=== PATIENT | female | born 1990 | race Two or more races ===

== ENCOUNTER 2024-09-25 14:30 | Outpatient (CLI) | payer OTHER | END 2024-09-25 14:33 | disposition home or self-care (01) | LOC: SONOGRAMA 14:30 | PROVIDERS: ATTEND Pathology Anatomic Pathology & Clinical Pathology | DX: E04.1 Nontoxic single thyroid nodule (principal) ==

== ENCOUNTER → 2025-09-18 | Outpatient (CLI) | payer OTHER | END | disposition home or self-care (01) | LOC: NST 14:11 | PROVIDERS: ATTEND Obstetrics & Gynecology | DX: Z34.83 Encounter for supervision of other normal pregnancy, third trimester (principal) ==

== ENCOUNTER 2025-09-29 14:30 | Inpatient (IN) | payer OTHER ==
[~2025-09-29] VITALS: Ht 167.6 cm; Wt 94.3 kg
[2025-10-02] MEDS ORDERED: PRENATABS RX T1 EACH PO (22:45)
[2025-10-02] MEDS ORDERED: SYNTHROID100 MCG PO (22:46)
[2025-10-02] MEDS ORDERED: D3 PLUS K2 DOT1 EACH PO (22:46)
[2025-10-02] MEDS ORDERED: IRON236 MG PO (22:46)
[2025-10-02] MEDS ORDERED: ESCITALOPRA5 MG/5 ML PO (22:47)
[2025-10-06 15:00] VITALS: BP 118/71
[2025-10-06 16:05] LABS: BASO % 0.5 % (0.1-1.2); EOS # 0.20 (0.04-0.54); EOS % 2.4 % (0.7-7.0); LYMPH # 1.72 (1.18-3.74); LYMPH % 21.1 % (19.3-53.1); MEAN PLATELET VOLUME 12.30 fl (9.4-12.4); MONO # 0.61 (0.24-0.82); MONO % 7.5 % (4.7-12.5); NEUT # 5.58 (1.56-6.13); NEUT % 68.3 % (34.0-71.1); RED CELL DISTRIBUTION WIDTH 12.7 % (11.6-14.4)
[2025-10-06] MEDS ORDERED: LEXAPRO5 MG PO (16:10)
[2025-10-06] MEDS ORDERED: PEPCID AC20 MG PO (16:11)
[2025-10-06] MEDS ORDERED: MISOPROSTOL 25 MCG TABLET VAG ONE (16:15)
[2025-10-06] MEDS ORDERED: RINGERS SOLUTION,LACTATED 1,000 ML IV SCH (16:15)
[2025-10-06 16:33] LABS: INR 0.95
[2025-10-06 17:05] LABS: ALT/SGPT 17.0 U/L (12-78); AST/SGOT 20.0 U/L (15-37); BILIRUBIN TOTAL 0.25 mg/dL (0.3-1.2); BUN CREA RATIO 21.0 (7.0-25.0); CREATININE SERUM 0.67 mg/dL (0.55-1.02); GFR 101.36; GLOBULINA 3.7 G/DL (2.4-3.5); GLUCOSE FASTING 91.0 mg/dL (65-100); OSMOLALITY SERUM 276.0 MOSM/KG (275-295)
[2025-10-06] MEDS ORDERED: MORPHINE SULFATE 4 MG/ML VIAL IV PRN (17:15)
[2025-10-06 19:47] VITALS: BP 134/83
[2025-10-06 23:43] VITALS: BP 118/75
[2025-10-07] VITALS (7 sets, daily range): BP systolic 112–141; BP diastolic 68–86
[2025-10-07] MEDS ORDERED: LEVOTHYROXINE SODIUM 100 MCG TABLET PO SCH (06:00)
[2025-10-07] MEDS ORDERED: OXYTOCIN 500 ML IV ONE (06:30)
[2025-10-07] MEDS ORDERED: CHLORHEXIDINE GLUCONATE 120 ML BOTTLE TOP SCH (10:00)
[2025-10-07] MEDS ORDERED: OXYTOCIN 1,000 ML IV SCH (10:00)
[2025-10-08] VITALS: BP 101/70
[2025-10-08 08:00] VITALS: BP 115/73
[2025-10-08 08:03] LABS: BASO % 0.3 % (0.1-1.2); EOS # 0.13 (0.04-0.54); EOS % 1.0 % (0.7-7.0); LYMPH # 2.41 (1.18-3.74); LYMPH % 18.9 % (19.3-53.1); MEAN PLATELET VOLUME 11.70 fl (9.4-12.4); MONO # 0.76 (0.24-0.82); MONO % 5.9 % (4.7-12.5); NEUT # 9.37 (1.56-6.13); NEUT % 73.4 % (34.0-71.1); RED CELL DISTRIBUTION WIDTH 12.9 % (11.6-14.4)
[2025-10-08] MEDS ORDERED: SOD FERRIC GLUC COMPLX/SUCROSE 62.5 MG/5 ML AMPUL IV SCH (09:14)
[2025-10-08] MEDS ORDERED: FERROUS SULFATE 325 MG TABLET.EC PO SCH (09:14)
[2025-10-08] MEDS ORDERED: CITRIC ACID/SODIUM CITRATE 30 ML BLIST.PACK PO SCH (09:18)
[2025-10-08 16:30] VITALS: BP 112/71
[2025-10-08 16:41] LABS: BASO % 0.3 % (0.1-1.2); EOS # 0.16 (0.04-0.54); EOS % 1.1 % (0.7-7.0); LYMPH # 2.76 (1.18-3.74); LYMPH % 18.4 % (19.3-53.1); MEAN PLATELET VOLUME 11.40 fl (9.4-12.4); MONO # 0.89 (0.24-0.82); MONO % 5.9 % (4.7-12.5); NEUT # 11.05 (1.56-6.13); NEUT % 73.7 % (34.0-71.1); RED CELL DISTRIBUTION WIDTH 13.1 % (11.6-14.4)
[2025-10-08 23:05] VITALS: BP 114/77
[2025-10-09 04:11] LABS: BASO % 0.4 % (0.1-1.2); EOS # 0.24 (0.04-0.54); EOS % 1.5 % (0.7-7.0); LYMPH # 3.09 (1.18-3.74); LYMPH % 19.2 % (19.3-53.1); MEAN PLATELET VOLUME 12.00 fl (9.4-12.4); MONO # 1.07 (0.24-0.82); MONO % 6.7 % (4.7-12.5); NEUT # 11.34 (1.56-6.13); NEUT % 70.5 % (34.0-71.1)
[2025-10-09 04:12] LABS: RED CELL DISTRIBUTION WIDTH 16.3 % (11.6-14.4)
[2025-10-09 08:47] VITALS: BP 124/88
== END 2025-10-09 15:55 | disposition home or self-care (01) | DRG 807 ==
LOC: LDR 10-06 14:35 → OB/GYN 10-07 10:28
PROVIDERS: Obstetrics & Gynecology; ADMIT Obstetrics & Gynecology; ATTEND Obstetrics & Gynecology
PROC: 3E033VJ Introduction of Other Hormone into Peripheral Vein, Percutaneous Approach (ICD-10-PCS; 2025-10-06)
PROC: 3E0P7VZ Introduction of Hormone into Female Reproductive, Via Natural or Artificial Opening (ICD-10-PCS; 2025-10-06)
PROC: 4A1HXCZ Monitoring of Products of Conception, Cardiac Rate, External Approach (ICD-10-PCS; 2025-10-06)
PROC: 10E0XZZ Delivery of Products of Conception, External Approach (ICD-10-PCS; principal; 2025-10-07)
PROC: 0KQM0ZZ Repair Perineum Muscle, Open Approach (ICD-10-PCS; 2025-10-07)
DX: O70.1 Second degree perineal laceration during delivery (principal); Z37.0 Single live birth; Z3A.39 39 weeks gestation of pregnancy

== ENCOUNTER 2025-10-02 22:42 | Outpatient (CLI) | payer OTHER ==
[2025-10-02 21:52] VITALS: BP 125/73
[2025-10-02] MEDS ORDERED: PRENATABS RX T1 EACH PO (22:45)
[2025-10-02] MEDS ORDERED: SYNTHROID100 MCG PO (22:46)
[2025-10-02] MEDS ORDERED: D3 PLUS K2 DOT1 EACH PO (22:46)
[2025-10-02] MEDS ORDERED: IRON236 MG PO (22:46)
[2025-10-02] MEDS ORDERED: ESCITALOPRA5 MG/5 ML PO (22:47)
[2025-10-02] MEDS ORDERED: RINGERS SOLUTION,LACTATED 1,000 ML IV SCH (23:00)
[2025-10-02 23:05] VITALS: BP 126/80
[2025-10-02 23:06] VITALS: BP 126/80
== END 2025-10-03 09:48 | disposition left against medical advice (07) ==
LOC: OBS/DEL 22:42
PROVIDERS: ATTEND Obstetrics & Gynecology
DX: O26.893 Other specified pregnancy related conditions, third trimester (principal); R10.20 Pelvic and perineal pain unspecified side; Z3A.38 38 weeks gestation of pregnancy